=== PATIENT | female | born 1990 | race African-American/Black ===

== ENCOUNTER 2016-09-18 15:53 | Emergency (ER) | payer MEDICAID, OTHER ==
[~2016-09-18] VITALS: Ht 180.3 cm; Wt 73.0 kg
[2016-09-18] MEDS ORDERED: SODIUM CHLORIDE 0.9% 1,000 ML IV ONE (18:34)
[2016-09-18] MEDS ORDERED: KETOROLAC 30MG/ML VIAL IV STA (18:34)
[2016-09-18] MEDS ORDERED: ONDANSETRON HCL 4MG/2ML VIAL IV STA (18:34)
[2016-09-18 18:58] LABS: BASOPHILS % 0.9 % (0.0-2.0); EOSINOPHILS % 3.1 % (0.0-5.0); HEMATOCRIT. 37.5 % (36.0-48.0); HEMOGLOBIN. 12.4 g/dL (12.0-16.0); LYMPHOCYTES % 39.7 % (20.0-50.0); MEAN CORPUSCULAR HEMOGLOBIN 29.8 pg (28.0-32.0); MEAN CORPUSCULAR HGB CONC 32.9 g/dL (31.0-37.0); MEAN CORPUSCULAR VOLUME 90.4 fL (81.0-99.0); MEAN PLATELET VOLUME 7.9 fl (7.4-10.4); NEUTROPHILS % 48.3 % (40.0-76.0); PLATELET 216 x1000/uL (130-400); RED BLOOD CELL COUNT 4.15 mill/uL (4.2-5.4); RED CELL DISTRIBUTION WIDTH 13.1 % (11.6-14.6)
[2016-09-18] MEDS ORDERED: ACETAMINOPHEN 325MG TABLET PO ONE (19:00)
[2016-09-18 19:01] LABS: CHLORIDE 107 mEq/L (98-107)
[2016-09-18 19:11] LABS: ALANINE AMINOTRANSFERASE 23 IU/L (13-61); ALBUMIN 3.7 g/dL (3.4-5.0); ANION GAP 11; CALCIUM 8.7 mg/dL (8.5-10.1); CARBON DIOXIDE 28 mEq/L (21-32); INDEX HEMOLYSI 1 (1-3); INDEX ICTERIC 1 (1-4); INDEX LIPEMIC 1 (1-3); UREA NITROGEN BLOOD 15 mg/dL (7-21); eGFR > 60 mL/min (>60)
[2016-09-18 20:25] VITALS: BP 108/68
== END 2016-09-18 20:32 | disposition home or self-care (01) ==
LOC: ER 16:29
DX: R51 Headache (principal); R11.2 Nausea with vomiting, unspecified; R53.1 Weakness; R42 Dizziness and giddiness; G43.909 Migraine, unspecified, not intractable, without status migrainosus
CPT/HCPCS: 36415; 70450; 80053; 85025; 96361; 96374; 99285; J2405; J7030; Z7610; J1885

== ENCOUNTER 2017-01-13 16:01 | Emergency (ER) | payer OTHER ==
[~2017-01-13] VITALS: Ht 180.3 cm; Wt 71.0 kg
[2017-01-13] MEDS ORDERED: IBUPROFEN 600MG TABLET PO ONE (19:45)
[2017-01-13 20:03] VITALS: BP 137/88
[2017-01-13 20:14] LABS: CHLORIDE 105 mEq/L (98-107)
[2017-01-13 20:15] LABS: BASOPHILS % 0.3 % (0.0-2.0); EOSINOPHILS % 1.6 % (0.0-5.0); HEMATOCRIT. 40.9 % (36.0-48.0); HEMOGLOBIN. 13.8 g/dL (12.0-16.0); LYMPHOCYTES % 38.3 % (20.0-50.0); MEAN CORPUSCULAR HEMOGLOBIN 29.7 pg (28.0-32.0); MEAN CORPUSCULAR VOLUME 88.2 fL (81.0-99.0); MEAN PLATELET VOLUME 8.1 fl (7.4-10.4); MONOCYTES % 10.8 % (2.0-8.0); PLATELET 180 x1000/uL (130-400); RED BLOOD CELL COUNT 4.63 mill/uL (4.2-5.4); RED CELL DISTRIBUTION WIDTH 12.9 % (11.6-14.6)
[2017-01-13 20:20] LABS: CARBON DIOXIDE 25 mEq/L (21-32)
== END 2017-01-13 21:15 | disposition home or self-care (01) ==
LOC: ER 16:01
DX: R07.89 Other chest pain (principal); R03.0 Elevated blood-pressure reading, without diagnosis of hypertension; D72.819 Decreased white blood cell count, unspecified; F41.9 Anxiety disorder, unspecified
CPT/HCPCS: 36415; 71010; 80048; 85025; 93005; 99285

== ENCOUNTER 2023-01-01 23:27 | Emergency (ER) | payer MEDICAID, OTHER ==
[~2023-01-01] VITALS: Ht 180.3 cm; Wt 78.0 kg
[2023-01-02 00:14] VITALS: O2SAT 100
[2023-01-02 00:52] LABS: BASOPHILS % 0.3 % (0.0-2.0); EOSINOPHILS % 2.1 % (0.0-5.0); HEMATOCRIT. 39.4 % (36.0-48.0); HEMOGLOBIN. 12.9 g/dL (12.0-16.0); LYMPHOCYTES % 33.7 % (20.0-50.0); MEAN CORPUSCULAR HEMOGLOBIN 29.4 pg (28.0-32.0); MEAN PLATELET VOLUME 7.8 fl (7.4-10.4); MONOCYTES % 7.8 % (2.0-8.0); NEUTROPHILS % 56.1 % (40.0-76.0); PLATELET 274 x1000/uL (130-400); RED BLOOD CELL COUNT 4.38 mill/uL (4.2-5.4); RED CELL DISTRIBUTION WIDTH 14.4 % (11.6-14.6)
[2023-01-02] MEDS ORDERED: ACETAMINOPHEN 325MG TABLET PO ONE (01:15)
[2023-01-02 04:22] LABS: CHLORIDE 108 mEq/L (98-107)
[2023-01-02] MEDS ORDERED: ACETAMINOPHEN 325MG TABLET PO NR (06:15)
[2023-01-02 06:22] LABS: HCG SCREEN POSITIVE
[2023-01-02] MEDS ORDERED: TOPUD PO (08:07)
[2023-01-02 08:27] VITALS: BP 137/84; PULSE 71; RESP 18; TEMP 98.4
== END 2023-01-02 08:28 | disposition home or self-care (01) ==
LOC: ER 23:27
DX: O20.0 Threatened abortion (principal); O26.891 Other specified pregnancy related conditions, first trimester; B34.9 Viral infection, unspecified; Z3A.00 Weeks of gestation of pregnancy not specified; O98.519 Other viral diseases complicating pregnancy, unspecified trimester; Z20.822 Contact with and (suspected) exposure to COVID-19
CPT/HCPCS: 99285; 80053; 84703; 84702; 83880; 83690; 85025; 85379; 84484; 36415; 71045; 76801; 76817; 93005; 87426; C9803; Z7610

== ENCOUNTER 2023-01-04 19:27 | Emergency (ER) | payer MEDICAID ==
[~2023-01-04] VITALS: Ht 175.3 cm; Wt 82.0 kg
[~2023-01-04 19:27] MED LIST: TOPUD PO
[2023-01-04 19:31] VITALS: BP 134/81; PULSE 101; RESP 18; TEMP 98.6; O2SAT 100
[2023-01-04 20:29] LABS: CHLORIDE 106 mEq/L (98-107)
[2023-01-04 20:30] LABS: BASOPHILS % 0.3 % (0.0-2.0); EOSINOPHILS % 1.7 % (0.0-5.0); HEMATOCRIT. 37.8 % (36.0-48.0); HEMOGLOBIN. 12.7 g/dL (12.0-16.0); LYMPHOCYTES % 27.2 % (20.0-50.0); MEAN CORPUSCULAR HEMOGLOBIN 30.2 pg (28.0-32.0); MEAN CORPUSCULAR VOLUME 89.6 fL (81.0-99.0); MEAN PLATELET VOLUME 7.8 fl (7.4-10.4); MONOCYTES % 8.7 % (2.0-8.0); NEUTROPHILS % 62.1 % (40.0-76.0); PLATELET 255 x1000/uL (130-400); RED BLOOD CELL COUNT 4.22 mill/uL (4.2-5.4); RED CELL DISTRIBUTION WIDTH 13.8 % (11.6-14.6)
[2023-01-04 20:46] LABS: HCG SCREEN POSITIVE
== END 2023-01-05 00:27 | disposition left against medical advice (07) ==
LOC: ER 19:27
DX: Z53.21 Procedure and treatment not carried out due to patient leaving prior to being seen by health care provider (principal)
CPT/HCPCS: 36415; 80053; 84703; 85025; 99281